=== PATIENT | male | born 1970 | race African-American/Black ===

== ENCOUNTER 2018-03-02 08:37 | Emergency (ER) | payer OTHER, SELFPAY ==
[2018-03-02 08:39] VITALS: BP 160/97; PULSE 97; RESP 16; TEMP 36.4; O2SAT 97; BMI 55.7
--- NOTE | 2018-03-02 09:27 | ED.VISSUMM ---
- ER Visit Summary Date of Service: 03/02/18 Chief Complaint: Bleeding from umbilicus History of Present Illness: The patient is a 47 M with no primary care physician. He reports that approximately 6 months ago he ran into something sharp and has had bleeding from his umbilicus off and on since then. This began again yesterday. He states he has been plugging the area with toilet paper. He denies any abdominal pain. No rash. No fever, chills, or purulent drainage from the area. Physical Examination: Vitals: Stable. Afebrile. General: Well-nourished and well-developed. Head: Normocephalic atraumatic. Neck: Supple, no lymphadenopathy. No JVD. Nontender. Cardiovascular: Regular rate and rhythm. No murmurs. Respiratory: No respiratory distress. Clear to auscultation bilaterally. Abdominal: Soft, nontender, nondistended, normal bowel sounds. No guarding, rebound, or peritoneal signs. Umbilicus is approximately 2-3 inches deep. There is a superficial ulcer on the left side of this. There is mild active bleeding. There is no visible vessel amenable to suture. Back: Nontender. Extremities: Nontender, no edema. Skin: Normal color, no rash. Neurologic: Alert and oriented ?3. Cranial nerves II through XII are intact. Normal strength and sensation. Psych: Normal affect. Test Results: Patient reports that he does not want to have blood work to check for anemia. Emergency Department Course and Treatment: I placed Gelfoam to the area and then loosely packed it with 4 x 4's and an ABD was placed. Treatment Plan: The patient was discussed with the wound clinic. They state that they would like the area to remain as dry as possible. They do not want wet-to-dry dressings. He will be discharged instructions to follow-up them in 2-3 days for a wound check. Return to the emergency department for any worsening symptoms. Disposition: To home in improved and stable condition. Impression: 1. Bleeding from umbilicus. This note was generated with [employer] software. It may contain incorrect words, spelling, and punctuation that were not noted in review of the chart prior to signing ED Disposition - Plan for ED Patient: Chief Complaint: Wound Instructions: Wound Care Referrals: Clinic,Wound [None] - 2 Days for wound check
--- NOTE | 2018-03-02 09:30 | ED.DCSUM_ITS ---
- ER Visit Summary Date of Service: 03/02/18 Chief Complaint: Bleeding from umbilicus History of Present Illness: The patient is a 47 M with no primary care physician. He reports that approximately 6 months ago he ran into something sharp and has had bleeding from his umbilicus off and on since then. This began again yesterday. He states he has been plugging the area with toilet paper. He denies any abdominal pain. No rash. No fever, chills, or purulent drainage from the area. Physical Examination: Vitals: Stable. Afebrile. General: Well-nourished and well-developed. Head: Normocephalic atraumatic. Neck: Supple, no lymphadenopathy. No JVD. Nontender. Cardiovascular: Regular rate and rhythm. No murmurs. Respiratory: No respiratory distress. Clear to auscultation bilaterally. Abdominal: Soft, nontender, nondistended, normal bowel sounds. No guarding, rebound, or peritoneal signs. Umbilicus is approximately 2-3 inches deep. There is a superficial ulcer on the left side of this. There is mild active bleeding. There is no visible vessel amenable to suture. Back: Nontender. Extremities: Nontender, no edema. Skin: Normal color, no rash. Neurologic: Alert and oriented ?3. Cranial nerves II through XII are intact. Normal strength and sensation. Psych: Normal affect. Test Results: Patient reports that he does not want to have blood work to check for anemia. Emergency Department Course and Treatment: I placed Gelfoam to the area and then loosely packed it with 4 x 4's and an ABD was placed. Treatment Plan: The patient was discussed with the wound clinic. They state that they would like the area to remain as dry as possible. They do not want wet-to-dry dressings. He will be discharged instructions to follow-up them in 2 -3 days for a wound check. Return to the emergency department for any worsening symptoms. Disposition: To home in improved and stable condition. Impression: 1. Bleeding from umbilicus. This note was generated with [employer] software. It may contain incorrect words, spelling, and punctuation that were not noted in review of the chart prior to signing ED Disposition - Plan for ED Patient: Chief Complaint: Wound Instructions: Wound Care Referrals: Clinic,Wound [None] - 2 Days for wound check
== END 2018-03-02 09:58 | disposition home or self-care (01) ==
PROVIDERS: Emergency Provider Emergency Medicine
DX: R58 Hemorrhage, not elsewhere classified (principal); L98.499 Non-pressure chronic ulcer of skin of other sites with unspecified severity
CPT/HCPCS: 99282

== ENCOUNTER 2018-03-09 08:21 | Outpatient (RCR) | payer OTHER, SELFPAY | END 2018-03-15 23:59 | LOC: WC 08:21 | PROVIDERS: Visit Provider Surgery | DX: Z09 Encounter for follow-up examination after completed treatment for conditions other than malignant neoplasm (principal) ==

== ENCOUNTER → 2019-03-03 | Outpatient (CLI) | payer OTHER, SELFPAY ==
[2018-05-03 09:04] VITALS: BMI 56.2
[2019-03-03 12:26] LABS: Anion Gap 6 (5-15); BUN 17 mg/dL (7-18); BUN/Creat Ratio 17.3 RATIO (10-20); Calcium,Total 8.6 mg/dL (8.5-10.1); Chloride 107 mmol/L (98-107); Cholesterol 183 mg/dL (200); Creatinine, Serum 0.98 mg/dL (0.70-1.30); EST Glomerular Filtration Rate 87 mL/min (>60); Est Glom Filt Rate - Afr Amer 105 mL/min (>60); Glucose 100 mg/dL (74-106); High Density Lipoprotein 38 mg/dL; Potassium 3.7 mmol/L (3.5-5.1); Sodium Level 141 mmol/L (136-145); Triglycerides 92 mg/dL; Very Low Density Lipoprotein 18 mg/dL (5-40)
[2019-03-03 12:30] LABS: Hemoglobin A1c 6.6 % (4.2-6.3)
== END | disposition home or self-care (01) ==
LOC: BIMLAB 09:58
PROVIDERS: PCP Internal Medicine; Visit Provider Internal Medicine
DX: I10 Essential (primary) hypertension (principal); E66.01 Morbid (severe) obesity due to excess calories
CPT/HCPCS: 36415; 80048; 80061; 83036

== ENCOUNTER → 2019-05-17 | Outpatient (CLI) | payer OTHER, SELFPAY ==
[2019-05-17 09:40] VITALS: BMI 59.7
[2019-05-17 11:14] LABS: Anion Gap 4 (5-15); BUN 17 mg/dL (7-18); BUN/Creat Ratio 15.6 RATIO (10-20); Calcium,Total 8.8 mg/dL (8.5-10.1); Chloride 103 mmol/L (98-107); Creatinine, Serum 1.09 mg/dL (0.70-1.30); EST Glomerular Filtration Rate 77 mL/min (>60); Est Glom Filt Rate - Afr Amer 94 mL/min (>60); Glucose 107 mg/dL (74-106); Potassium 3.6 mmol/L (3.5-5.1); Sodium Level 137 mmol/L (136-145)
== END | disposition home or self-care (01) ==
LOC: BIMLAB 10:00
PROVIDERS: PCP Internal Medicine; Visit Provider Internal Medicine
DX: I10 Essential (primary) hypertension (principal)
CPT/HCPCS: 36415; 80048

== ENCOUNTER → 2019-12-13 | Outpatient (CLI) | payer OTHER, SELFPAY ==
[2019-12-13 09:08] VITALS: BMI 59.1
[2019-12-13 12:26] LABS: Anion Gap 4 (5-15); BUN 16 mg/dL (7-18); BUN/Creat Ratio 17.4 RATIO (10-20); Calcium,Total 8.8 mg/dL (8.5-10.1); Chloride 106 mmol/L (98-107); Creatinine, Serum 0.92 mg/dL (0.70-1.30); EST Glomerular Filtration Rate 94 mL/min (>60); Est Glom Filt Rate - Afr Amer 114 mL/min (>60); Glucose 94 mg/dL (74-106); Potassium 3.8 mmol/L (3.5-5.1); Sodium Level 138 mmol/L (136-145)
== END | disposition home or self-care (01) ==
LOC: BIMLAB 09:24
PROVIDERS: PCP Internal Medicine; Referring Provider Internal Medicine; Visit Provider Internal Medicine
DX: I10 Essential (primary) hypertension (principal); E11.9 Type 2 diabetes mellitus without complications
CPT/HCPCS: 36415; 80048

== ENCOUNTER → 2020-05-07 09:46 | Outpatient (CLI) | payer OTHER, SELFPAY ==
[2020-05-07 09:24] VITALS: BMI 57.7
[2020-05-07 12:55] LABS: ALB/GLOB Ratio 0.7 RATIO (0.9-2.4); AST(SGOT) 19 U/L (15-37); Alanine Aminotransfer ALT/SGPT 28 U/L (16-61); Albumin, Serum 3.3 g/dL (3.2-5.0); Alkaline Phosphatase 79 U/L (45-117); Anion Gap 6 (5-15); BUN 17 mg/dL (7-18); BUN/Creat Ratio 16.5 RATIO (10-20); Calcium,Total 8.9 mg/dL (8.5-10.1); Chloride 101 mmol/L (98-107); Cholesterol 191 mg/dL (200); Creatinine, Serum 1.03 mg/dL (0.70-1.30); EST Glomerular Filtration Rate 82 mL/min (>60); Est Glom Filt Rate - Afr Amer 99 mL/min (>60); Glucose 105 mg/dL (74-106); High Density Lipoprotein 41 mg/dL; Potassium 3.9 mmol/L (3.5-5.1); Protein, Total 8.3 g/dL (6.4-8.2); Sodium Level 136 mmol/L (136-145); Triglycerides 92 mg/dL; Very Low Density Lipoprotein 18 mg/dL (5-40)
== END ==
PROVIDERS: PCP Internal Medicine; Referring Provider Internal Medicine; Visit Provider Internal Medicine
DX: E11.9 Type 2 diabetes mellitus without complications (principal); I10 Essential (primary) hypertension
CPT/HCPCS: 36415; 80053; 80061; 83036

== ENCOUNTER → 2020-11-20 09:27 | Outpatient (CLI) | payer OTHER, SELFPAY ==
[2020-11-20 09:03] VITALS: BMI 59.2
[2020-11-20 12:27] LABS: Anion Gap 5 (5-15); BUN 16 mg/dL (7-18); BUN/Creat Ratio 15.1 RATIO (10-20); Calcium,Total 8.9 mg/dL (8.5-10.1); Chloride 106 mmol/L (98-107); Creatinine, Serum 1.06 mg/dL (0.70-1.30); EST Glomerular Filtration Rate 79 mL/min (>60); Est Glom Filt Rate - Afr Amer 96 mL/min (>60); Glucose 98 mg/dL (74-106); Potassium 4.4 mmol/L (3.5-5.1); Sodium Level 140 mmol/L (136-145)
== END ==
PROVIDERS: PCP Internal Medicine; Referring Provider Internal Medicine; Visit Provider Internal Medicine
DX: I10 Essential (primary) hypertension (principal); E11.9 Type 2 diabetes mellitus without complications
CPT/HCPCS: 36415; 80048